=== PATIENT | female | born 2000 | race Hispanic/Latino ===

== ENCOUNTER 2018-07-06 15:16 | Emergency (ER) | payer SELFPAY ==
[2018-07-06 15:16] VITALS: BMI 32.8
[2018-07-06 15:28] VITALS: RESP 16; TEMP 98.4
--- NOTE | 2018-07-06 16:39 | ED PDOC ---
HPI: Back Time Seen by Provider: 07/06/18 15:38 Chief Complaint (Nursing): Back Pain Chief Complaint (Provider): Back Pain History Per: Patient History/Exam Limitations: no limitations Onset/Duration Of Symptoms: Days (x2) Current Symptoms Are (Timing): Still Present Additional Complaint(s): 18 year old female with no significant pmHx, arrives to ED for an evaluation of a trip and fall at home yesterday. Patient reports she tripped on some toys then fell backwards, sustaining pain to her neck and lower back associated with headache, blurry vision, and tingling sensation of the lower extremities. She took Aleve with some relief, but reports that pain is so severe and intolerable that she has difficulty swallowing. Otherwise, she denies any weakness, gait instability, dizziness, upper extremity numbness/tingling, shortness of breath, fever, chills, dysfunction with bladder or bowels. PCP: none provided Past Medical History Reviewed: Historical Data, Nursing Documentation, Vital Signs Vital Signs: Last Vital Signs Temp 98.4 F 07/06/18 15:27 Pulse 77 07/06/18 15:27 Resp 16 07/06/18 15:27 BP 106/71 07/06/18 15:27 Pulse Ox 99 07/06/18 15:27 - Medical History PMH: No Chronic Diseases Denies: Chronic Kidney Disease - Surgical History Surgical History: - Family History Family History: States: Unknown Family Hx - Social History Current smoker - smoking cessation education provided: No Alcohol: None Drugs: Denies - Home Medications Home Medications: Ambulatory Orders Medication Instructions Recorded RX: Vit No.126/Iron/Folic 1 tab PO DAILY 07/09/16 [Classic Tablet] RX: Ibuprofen [Motrin Tab] 600 mg PO Q6 PRN #20 tab 07/12/16 RX: oxyCODONE/Acetaminophen 1 tab PO Q6 PRN #8 tab 07/12/16 [Percocet 5/325 mg Tab] Cyclobenzaprine [Cyclobenzaprine 10 mg PO Q8 PRN 5 Days tab 07/06/18 HCl] RX: Ibuprofen [Motrin Tab] 600 mg PO Q6 PRN 5 Days tab 07/06/18 - Allergies Allergies/Adverse Reactions: Allergies Allergy/AdvReac Type Severity Reaction Status Date / Time No Known Allergies Allergy Verified 07/09/16 07:01 Review of Systems ROS Statement: Except As Marked, All Systems Reviewed And Found Negative Constitutional: Negative for: Fever, Chills Eyes: Positive for: Vision Change (blurry) ENT: Positive for: Throat Pain (with swallowing) Respiratory: Negative for: Shortness of Breath Gastrointestinal: Negative for: Diarrhea, Constipation Genitourinary Female: Negative for: Dysuria, Incontinence, Hematuria Musculoskeletal: Positive for: Neck Pain, Back Pain (lower) Neurological: Positive for: Headache, Other (tingling sensation to bilateral LE). Negative for: Weakness, Numbness (or tingling sensation of UE), Incoordination, Dizziness Physical Exam - Reviewed Nursing Documentation Reviewed: Yes Vital Signs Reviewed: Yes - Physical Exam Appears: Positive for: Non-toxic, Uncomfortable Head Exam: Positive for: ATRAUMATIC, NORMAL INSPECTION, NORMOCEPHALIC Skin: Positive for: Normal Color Eye Exam: Positive for: Normal appearance, EOMI, PERRL ENT: Positive for: Normal ENT Inspection Neck: Positive for: Limited ROM (flexion, extension, abduction, and lateral rotation; mild erythema to posterior neck with step-off), Pain On Movement Of Neck (tracheal tenderness on palpaton (-)deviation) Cardiovascular/Chest: Positive for: Regular Rate, Rhythm, Chest Non Tender Respiratory: Positive for: Normal Breath Sounds. Negative for: Wheezing, Respiratory Distress Pulses-Dorsalis Pedis (L): 2+ Pulses-Dorsalis Pedis (R): 2+ Extremity: Positive for: Normal ROM (right shoulder/bilateral hip/bilateral knees), Tenderness (abduction of left shoulder with limited ROM), Other (sensation intact to UE/LE). Negative for: Deformity (upper/lower) Neurologic/Psych: Positive for: Alert, Oriented (x3). Negative for: Motor/Sensory Deficits - Laboratory Results Urine POC: Negative - ECG O2 Sat by Pulse Oximetry: 99 (RA) Pulse Ox Interpretation: Normal Medical Decision Making Medical Decision Making: Time: 1550 Initial Plan: * CT C-spine * CT head * CT neck * Urine * XR lumbar spine * Flexeril 10mg PO * Toradol 30mg IM Time: 1650 --XR lumbar spine FINDINGS: BONES: Normal alignment. No listhesis. No fracture. DISC SPACES: Unremarkable. OTHER FINDINGS: None. IMPRESSION: Unremarkable radiographs of the lumbar spine. Time: 1700 --CT head FINDINGS: HEMORRHAGE: No intracranial hemorrhage. BRAIN: No mass effect or edema. Multiple calcified intraparenchymal granulomata. VENTRICLES: Unremarkable. No hydrocephalus. CALVARIUM: Unremarkable. PARANASAL SINUSES: Unremarkable as visualized. No significant inflammatory changes. MASTOID AIR CELLS: Unremarkable as visualized. No inflammatory changes. OTHER FINDINGS: None. IMPRESSION: No acute hemorrhage. Time: 1715 --CT C-spine FINDINGS: ALIGNMENT Bony alignment is anatomic. DEGENERATIVE CHANGES No significant canal stenosis or neural foraminal narrowing evident. SOFT TISSUES The prevertebral soft tissues are within normal limits. BONES No acute fracture or aggressive appearing osseous lesion. Accessory ossifi cation is seen posterior to the spinous process of the C6 vertebral body. IMPRESSION: No acute cervical spine abnormality. Pt re-evaluated prior to d/c home with improvement in neck and back pain. Stable for D/C home. Scribe Attestation: Documented by Vida Patel, acting as a scribe for ALICIA Gonzalez. Provider Scribe Attestation: All medical record entries made by the Scribe were at my direction and personally dictated by me. I have reviewed the chart and agree that the record accurately reflects my personal performance of the history, physical exam, medical decision making, and the department course for this patient. I have also personally directed, reviewed, and agree with the discharge instructions and disposition. Disposition - Clinical Impression Clinical Impression: Back strain, Neck muscle strain - Patient ED Disposition Is Patient to be Admitted: No - Disposition Referrals: [facility] [place] [Outside] [facility] [place] [Outside] Disposition: Routine/Home Disposition Time: 20:09 Condition: STABLE Additional Instructions: Rest and use Ibuprofen and Flexeril as needed for pain. F/u with primary care doctor or orthopedics for continued pain. Return to ER if you develop trouble with your vision or worsening PRIETO. Prescriptions: Cyclobenzaprine [Cyclobenzaprine HCl] 10 mg PO Q8 PRN 5 Days tab PRN Reason: Pain, Moderate (4-7) RX: Ibuprofen [Motrin Tab] 600 mg PO Q6 PRN 5 Days tab PRN Reason: Pain, Moderate (4-7) Instructions: Muscle Strain (DC), Cervical Muscle Strain (DC) Forms: [employer] (Icelandic) Print Language: STATELESS
--- NOTE | 2018-07-06 16:55 | RAD ---
Date of service: 07/06/2018 PROCEDURE: Radiographs of the Lumbar Spine. HISTORY: fall onto back COMPARISON: No prior. FINDINGS: BONES: Normal alignment. No listhesis. No fracture. DISC SPACES: Unremarkable. OTHER FINDINGS: None. IMPRESSION: Unremarkable radiographs of the lumbar spine.
--- NOTE | 2018-07-06 17:10 | CT ---
Date of service: 07/06/2018 PROCEDURE: CT HEAD WITHOUT CONTRAST. HISTORY: fall w/ posterior head trauma COMPARISON: None available. TECHNIQUE: Axial computed tomography images were obtained through the head/brain without intravenous contrast. Radiation dose: Total exam DLP = 728.21 mGy-cm. This CT exam was performed using one or more of the following dose reduction techniques: Automated exposure control, adjustment of the mA and/or kV according to patient size, and/or use of iterative reconstruction technique. FINDINGS: HEMORRHAGE: No intracranial hemorrhage. BRAIN: No mass effect or edema. Multiple calcified intraparenchymal granulomata. VENTRICLES: Unremarkable. No hydrocephalus. CALVARIUM: Unremarkable. PARANASAL SINUSES: Unremarkable as visualized. No significant inflammatory changes. MASTOID AIR CELLS: Unremarkable as visualized. No inflammatory changes. OTHER FINDINGS: None. IMPRESSION: No acute hemorrhage.
[2018-07-06 20:10] VITALS: BP 123/68; PULSE 73
[2018-07-07 00:28] VITALS: O2SAT 99
--- NOTE | 2018-07-07 10:16 | CT ---
Date of service: 07/06/2018 PROCEDURE: CT Cervical Spine without contrast HISTORY: fall with head trauma COMPARISON: None available. TECHNIQUE: Axial computed tomography images were obtained of the cervical spine without the use of intravenous contrast. Coronal and sagittal reformatted images were created and reviewed. Radiation dose: Total exam DLP = 361.42 mGy-cm. This CT exam was performed using one or more of the following dose reduction techniques: Automated exposure control, adjustment of the mA and/or kV according to patient size, and/or use of iterative reconstruction technique. FINDINGS: VERTEBRAE: No fracture. Normal alignment. No destructive bony lesion. Posterior ossification center C6 vertebral body common normal variant DISCS/SPINAL CANAL/NEURAL FORAMINA: No significant central canal or neural foraminal stenosis. Discs heights are grossly preserved. PARASPINAL SOFT TISSUES: Unremarkable. OTHER FINDINGS: None. IMPRESSION: No significant or acute findings to account for/ related to the clinical presentation. Concordant results (preliminary interpretation) provided by [facility]. Procedure Completed: 16:57 Preliminary Report: Dictated and Authenticated: 18:10 Final Interpretation: 10:12. July 07, 2018
== END 2018-07-06 20:10 | disposition home or self-care (01) ==
LOC: H.ER 15:16
DX: S39.012A Strain of muscle, fascia and tendon of lower back, initial encounter (principal); S16.1XXA Strain of muscle, fascia and tendon at neck level, initial encounter; S09.90XA Unspecified injury of head, initial encounter; W01.0XXA Fall on same level from slipping, tripping and stumbling without subsequent striking against object, initial encounter; Y92.89 Other specified places as the place of occurrence of the external cause
CPT/HCPCS: 70450; 72114; 72125; 81025; 96372; 99283; J1885